=== PATIENT | male | born 1950 | race Caucasian/White ===

== ENCOUNTER 2020-07-21 10:45 | Emergency (ER) | payer MEDICARE, OTHER ==
[2020-07-21] MEDS ORDERED: Boostrix 0.5 ML (Tdap) VIAL ONE (11:16)
== END 2020-07-21 12:08 | disposition home or self-care (01) ==
LOC: BURERS 10:45
DX: S01.01XA Laceration without foreign body of scalp, initial encounter (principal); S40.012A Contusion of left shoulder, initial encounter; M54.2 Cervicalgia; E78.5 Hyperlipidemia, unspecified; I10 Essential (primary) hypertension; Z23 Encounter for immunization; Z87.891 Personal history of nicotine dependence; Z79.899 Other long term (current) drug therapy; Z79.82 Long term (current) use of aspirin; W01.0XXA Fall on same level from slipping, tripping and stumbling without subsequent striking against object, initial encounter
CPT/HCPCS: 12002; 70450; 72125; 90471; 90715